=== PATIENT | male | born 1950 | race Hispanic/Latino ===

== ENCOUNTER 2018-03-05 13:38 | Outpatient (CLI) | payer MEDICARE, OTHER | END 2018-03-05 13:39 | disposition home or self-care (01) | LOC: BICRAD 13:38 | PROVIDERS: ATTEND Internal Medicine Rheumatology | DX: M25.462 Effusion, left knee (principal); M17.12 Unilateral primary osteoarthritis, left knee; Z98.890 Other specified postprocedural states ==

== ENCOUNTER 2018-06-04 12:30 | Outpatient (CLI) | payer MEDICARE, OTHER | END 2018-06-04 12:31 | disposition home or self-care (01) | LOC: BICRAD 12:30 | PROVIDERS: ATTEND Internal Medicine Rheumatology | DX: M47.896 Other spondylosis, lumbar region (principal); M47.897 Other spondylosis, lumbosacral region | CPT/HCPCS: 72100 ==

== ENCOUNTER 2019-06-04 09:40 | Outpatient (CLI) | payer MEDICARE, OTHER ==
--- NOTE | 2019-06-04 11:22 | ULT ---
Hepatic sonogram with duplex evaluation HISTORY: Hepatitis. FINDINGS: Gallbladder has a normal appearance without evidence of stones. Common duct is 0.5 cm. Live r heterogeneous without focal mass or intrahepatic biliary dilatation. No free fluid. Spleen measures up to 11.7 cm. Good color and spectral Doppler flow within the hepatic and splenic arteries. Portal venous flow is t owards the liver. Hepatic venous flow is towards the IVC. IMPRESSION: No evidence of portal venous hypertension. No abnormalities demonstrated.
== END 2019-06-04 09:41 | disposition home or self-care (01) ==
LOC: BICULT 09:40
PROVIDERS: ATTEND Internal Medicine Gastroenterology
DX: Z12.11 Encounter for screening for malignant neoplasm of colon (principal); B18.2 Chronic viral hepatitis C
CPT/HCPCS: 76705

== ENCOUNTER 2020-07-28 10:37 | Outpatient (CLI) | payer MEDICARE, OTHER ==
--- NOTE | 2020-07-28 12:06 | ULT ---
HEPATIC ULTRASOUND WITH VASCULAR DUPLEX INCLUDING COLOR AND SPECTRAL DOPPLER IMAGING: Date: 07/28/2020 COMPARISON: 06/04/2019. FINDINGS: Liver echogenicity appears to be within normal limits. The gallbladder demonstrates no evidence of ga llstones, wall thickening, edema, or pericholecystic fluid. Common bile duct within normal limits. Sp deborah is unremarkable. Visualized pancreas is unremarkable. Vascular duplex demonstrates antegrade hepatic and portal venous flow. IMPRESSION: Unremarkable hepatic duplex ultrasound including color and spectral Doppler imaging. Antegrade hepati c and portal venous flow. POS: RRE
== END 2020-07-28 10:38 | disposition home or self-care (01) ==
LOC: BICULT 10:37
PROVIDERS: ATTEND Physician Assistant Medical
DX: K74.60 Unspecified cirrhosis of liver (principal); Z86.19 Personal history of other infectious and parasitic diseases
CPT/HCPCS: 76705

== ENCOUNTER 2021-03-03 10:37 | Outpatient (CLI) | payer MEDICARE, OTHER | END 2021-03-03 10:38 | disposition home or self-care (01) | LOC: BICULT 10:37 | PROVIDERS: ATTEND Physician Assistant Medical | DX: K74.60 Unspecified cirrhosis of liver (principal); R11.0 Nausea; Z86.19 Personal history of other infectious and parasitic diseases | CPT/HCPCS: 93975 ==

== ENCOUNTER 2021-06-01 13:03 | Outpatient (CLI) | payer MEDICARE, OTHER ==
[2021-06-01 15:37] LABS: Hemoglobin 10.7 g/dL (13.5-17.5); Mean Corpuscular HGB CONC 32.1 g/dL (32.0-36.0); Mean Corpuscular Hemoglobin 28.4 pg (27.0-33.0); Mean Corpuscular Volume 88.3 fl (81.2-95.1); Mean Platelet Volume 10.7 fl (7.4-10.4); Platelet Count 240 10x3/uL (150-450); RBC Distribution Width 14.2 % (11.5-14.5); Red Blood Cell (RBC) Count 3.77 10x6/uL (4.32-5.72); White Blood Cell (WBC) Count 7.1 10x3/uL (3.5-10.5)
[2021-06-01 15:59] LABS: Anion Gap 18 mmol/L (10-20); BUN (Urea Nitrogen) 14 mg/dL (8.4-25.7); Calc. Creatinine Clearance 0 mL/min (70-130); Carbon Dioxide 20 mmol/L (23-31); Chloride 105 mmol/L (98-107); Glucose 132 mg/dL (80-115); Sodium 138 mmol/L (136-145)
[2021-06-02 15:49] LABS: SARS-CoV-2 PCR by NAA Not Detected (NotDetected)
== END 2021-06-01 13:04 | disposition home or self-care (01) ==
LOC: LABBT 13:03
PROVIDERS: ATTEND Urology
DX: Z01.818 Encounter for other preprocedural examination (principal); N20.0 Calculus of kidney; Z20.822 Contact with and (suspected) exposure to COVID-19
CPT/HCPCS: 71046; 80048; 85027; 93005; U0003; U0005; 93010

== ENCOUNTER 2021-06-03 09:54 | Day surgery (SDC) | payer MEDICARE, OTHER ==
[2021-06-02 11:46] VITALS: BMI 23.4
[2021-06-03] MEDS ORDERED: Levofloxacin 500 mg/D5W 100 ml Premix Bag ONE (10:45)
[2021-06-03] MEDS ORDERED: Iothalamate Meglumine 60% 30 ML VIAL FS ONE ×2 (13:23)
[2021-06-03] MEDS ORDERED: Fentanyl 100 MCG/2 ML VIAL ONE (13:28)
[2021-06-03] MEDS ORDERED: PROPOFOL 200 MG/20 ML VIAL ONE (13:33)
[2021-06-03] MEDS ORDERED: Lidocaine 1% PF 5 ML VIAL ONE (13:33)
[2021-06-03] MEDS ORDERED: Ondansetron PF 4 MG/2 ML Vial ONE (13:33)
[2021-06-03] MEDS ORDERED: Dexamethasone 20 MG/5 ML VIAL ONE (13:33)
[2021-06-03] MEDS ORDERED: PHENYLEPHRINE-NS 100 MCG/ML 10 ML SYRINGE ONE (13:33)
[2021-06-03] MEDS ORDERED: Glycopyrrolate 0.2 MG/ML 5 ML SYRINGE ONE (13:33)
[2021-06-03] MEDS ORDERED: Phenazopyridine HCl 100 MG TAB ONE (15:46)
== END 2021-06-03 17:52 | disposition home or self-care (01) ==
LOC: SDC 09:54
PROVIDERS: ATTEND Urology
PROC: 0TC68ZZ Extirpation of Matter from Right Ureter, Via Natural or Artificial Opening Endoscopic (ICD-10-PCS; principal; 2021-06-03)
PROC: 0T768DZ Dilation of Right Ureter with Intraluminal Device, Via Natural or Artificial Opening Endoscopic (ICD-10-PCS; 2021-06-03)
DX: N20.1 Calculus of ureter (principal); I10 Essential (primary) hypertension; I48.91 Unspecified atrial fibrillation; E78.00 Pure hypercholesterolemia, unspecified; I25.10 Atherosclerotic heart disease of native coronary artery without angina pectoris; M19.90 Unspecified osteoarthritis, unspecified site; M10.9 Gout, unspecified; E11.621 Type 2 diabetes mellitus with foot ulcer; L97.529 Non-pressure chronic ulcer of other part of left foot with unspecified severity; Z79.2 Long term (current) use of antibiotics; Z79.84 Long term (current) use of oral hypoglycemic drugs; Z79.899 Other long term (current) drug therapy; Z88.6 Allergy status to analgesic agent; Z91.013 Allergy to seafood
CPT/HCPCS: 52356; 74420; 82365; C2617; 88300; J1100; J1956; J2405; J2704; J3010

== ENCOUNTER 2021-10-11 11:13 | Outpatient (CLI) | payer MEDICARE, OTHER | END 2021-10-11 11:14 | disposition home or self-care (01) | LOC: BICRAD 11:13 | PROVIDERS: ATTEND Internal Medicine Cardiovascular Disease | DX: R06.02 Shortness of breath (principal) | CPT/HCPCS: 71046 ==